=== PATIENT | female | born 1975 | race Caucasian/White ===

== ENCOUNTER 2022-07-24 10:00 | Emergency (ER) | payer SELFPAY ==
[2022-07-24 12:15] LABS: #Basophils 0.1 10x3/uL (0.0-0.2); #Eosinphils 0.3 10x3/uL (0.0-0.5); #Monocytes 1.4 10x3/uL (0.0-1.1); #Neutrophils 14.7 10x3/uL (1.5-8.4); %Basophils 0.3 % (0.0-2.0); %Eosinophils 1.9 % (0.0-6.0); %Lymphocytes 5.8 % (18.0-47.0); %Monocytes 8.1 % (0.0-10.0); %Neutrophils 83.2 % (40.0-75.0); Hemoglobin 11.4 g/dL (12.0-15.5); Mean Corpuscular HGB CONC 32.8 g/dL (32.0-36.0); Mean Corpuscular Hemoglobin 30.1 pg (27.0-33.0); Mean Corpuscular Volume 91.8 fl (81.6-98.3); Mean Platelet Volume 9.3 fl (7.4-10.4); Platelet Count 425 10x3/uL (150-450); RBC Distribution Width 12.5 % (11.5-14.5); Red Blood Cell (RBC) Count 3.79 10x6/uL (3.90-5.03); White Blood Cell (WBC) Count 17.6 10x3/uL (3.5-10.5)
[2022-07-24 12:24] LABS: ALT (SGPT) 43 U/L (8-55); AST (SGOT) 23 U/L (5-34); Albumin 4.5 g/dL (3.5-5.0); Alkaline Phosphatase 90 U/L (40-110); Anion Gap 14 mmol/L (10-20); BUN (Urea Nitrogen) 16 mg/dL (7.0-18.7); Bilirubin, Total 0.2 mg/dL (0.2-1.2); CRP (Inflammatory) Less than 0.50 mg/dL (= or < 0.5); Calc. Creatinine Clearance 0 mL/min (70-130); Carbon Dioxide 25 mmol/L (22-29); Chloride 102 mmol/L (98-107); Estimated GFR 71; Glucose 101 mg/dL (70-105); Potassium 4.1 mmol/L (3.5-5.1); Protein, Total 7.5 g/dL (6.0-8.3); Sodium 137 mmol/L (136-145)
[2022-07-24] MEDS ORDERED: Lorazepam 2 MG/ML VIAL ONE (18:30)
== END 2022-07-24 18:34 | disposition short-term general hospital (02) ==
LOC: CSHERS 10:00
DX: D72.12 Drug rash with eosinophilia and systemic symptoms syndrome (principal); L51.1 Stevens-Johnson syndrome
CPT/HCPCS: 36415; 80053; 85025; 85652; 86140; 96374; J2060

== ENCOUNTER 2022-07-27 11:59 | Emergency (ER) | payer SELFPAY ==
[2022-07-27] MEDS ORDERED: methylPREDNISolone Sod Succ/PF 125 MG/2 ML VIAL ONE (12:58)
[2022-07-27] MEDS ORDERED: diphenhydrAMINE 50 MG/ML VIAL ONE ×2 (12:59→14:01)
[2022-07-27] MEDS ORDERED: EPINEPHrine 1 MG/ML AMP ONE (12:59)
[2022-07-27] MEDS ORDERED: Lorazepam 2 MG/ML VIAL ONE (13:00)
[2022-07-27] MEDS ORDERED: Famotidine/PF 20 mg/2ml Vial ONE ×2 (13:00→13:14)
== END 2022-07-27 14:50 | disposition home or self-care (01) ==
LOC: CSHERS 11:59
DX: L50.9 Urticaria, unspecified (principal); F41.9 Anxiety disorder, unspecified
CPT/HCPCS: 96372; 96374; 96375; 96376; J0171; J1200; J2060; J2930; S0028